=== PATIENT | male | born 1990 | race Caucasian/White ===

== ENCOUNTER 2023-10-24 19:14 | Emergency (ER) | payer OTHER ==
[~2023-10-24] VITALS: Ht 172.7 cm; Wt 90.7 kg
[2023-10-24] MEDS: TDAP DIPH,PERTUSS,TET VAC/PF 0.5 ML DISP.SYRIN IM ONE (19:47)
[2023-10-24] MEDS: HYDROCODONE/APAP 5-325MG TABLET PO ONE (19:47)
[2023-10-24] MEDS: IBUPROFEN 800 MG TABLET PO ONE (19:47)
[2023-10-24] MEDS: NEOMY/BACITRA/POLYMYXIN B OINT UD PACKET TP ONE (19:56)
[2023-10-24] MEDS ORDERED: IBUP-1955 PO (21:16)
[2023-10-24] MEDS ORDERED: AMOX-430 PO (21:16)
[2023-10-24] MEDS ORDERED: NEOM28.43 TP (21:16)
[2023-10-24] MEDS: AMOXICILLIN-CLAVUL 875-125MG TABLET PO ONE (21:19)
[2023-10-24 21:34] VITALS: BP 140/110; TEMP 98.8; O2SAT 96
== END 2023-10-24 21:36 | disposition home or self-care (01) ==
LOC: ER 19:23
DX: S30.0XXA Contusion of lower back and pelvis, initial encounter (principal); S80.12XA Contusion of left lower leg, initial encounter; S80.11XA Contusion of right lower leg, initial encounter; F17.210 Nicotine dependence, cigarettes, uncomplicated; Z79.1 Long term (current) use of non-steroidal anti-inflammatories (NSAID); Z79.899 Other long term (current) drug therapy; W54.0XXA Bitten by dog, initial encounter; Y93.89 Activity, other specified; Y92.89 Other specified places as the place of occurrence of the external cause; Y99.8 Other external cause status
CPT/HCPCS: 73560; 90715; A4606; A4663